=== PATIENT | male | born 1995 | race Caucasian/White ===

== ENCOUNTER 2017-11-19 19:15 | Emergency (ER) | payer MEDICAID, BC ==
[2017-11-19] MEDS: ACETAMINOPHEN 500 MG TAB PO (19:37)
[2017-11-19] MEDS: IBUPROFEN 600 MG TAB PO (19:37)
== END 2017-11-19 20:20 | disposition home or self-care (01) ==
LOC: FTE 19:15
DX: J02.9 Acute pharyngitis, unspecified (principal); J45.909 Unspecified asthma, uncomplicated; F17.210 Nicotine dependence, cigarettes, uncomplicated
CPT/HCPCS: 99283; Z7502